=== PATIENT | male | born 1950 | race Caucasian/White ===

== ENCOUNTER → 2016-04-10 | Outpatient (CLI) | payer OTHER ==
[~2016-04-10] MED LIST: ACET-461 PO; ATEN25TA PO; ATOR40TA PO; ATOR40TA70 PO; ATOR80TA64 PO; ATOR80TA76 PO; Amlodipine Besylate PO; CARV3.122 PO; CHOL2000 PO; ENXP60I.6 SQ; FENO134C PO; FENO134C2 PO; FENO135C PO; FENO145T20 PO; RIFA300C3 PO; WARF-48 PO; WARF5TAB PO; WRF2.5T PO; WRF5T PO
[2016-04-10 18:08] LABS: BASOPHILS % (AUTO) 0 % (0-10); EOSINOPHILS # (AUTO) 0.2 10^3/uL (0.0-0.3); EOSINOPHILS % (AUTO) 2 % (0-10); LYMPHOCYTES # (AUTO) 2.8 X 10^3 (1.0-4.0); LYMPHOCYTES % (AUTO) 26 % (12-44); MEAN CORPUSCULAR HEMOGLOBIN 32 PG (25-34); MEAN CORPUSCULAR HGB CONC 33 G/DL (32-36); MEAN CORPUSCULAR VOLUME 97 FL (80-99); MEAN PLATELET VOLUME 12.2 FL (7.4-10.4); MONOCYTES % (AUTO) 9 % (0-12); NEUTROPHILS # (AUTO) 6.7 X 10^3 (1.8-7.8); NEUTROPHILS % (AUTO) 62 % (42-75); PLATELET COUNT 123 10^3/uL (130-400); RED BLOOD COUNT 3.11 10^6/uL (4.35-5.85); RED CELL DISTRIBUTION WIDTH 13.4 % (10.0-14.5); WHITE BLOOD COUNT 10.8 10^3/uL (4.3-11.0)
--- OUTSIDE RECORDS SUMMARY | 2016-04-10 18:08 | XMS REPORT | Continuity of Care Document ---
Author Author [facility] Organization [facility] Address Unknown Phone Unavailable Care Team Providers Care Manager Msw Name Role Phone PJ GALAN DO PCP Insurance Providers Payer Name Policy Number Subscriber Name Relationship [facility] [id number] Vasile Davies Self / Same As Patient Advance Directives Directive Response Recorded Date/Time Advance Directives Yes 10/06/14 9:05pm Health Care Power of Crop Insurance Claims Adjuster No 10/06/14 9:05pm Organ Donor Yes 10/06/14 9:05pm Resuscitation Status Full Code 10/06/14 9:05pm Chief Complaint and Reason for Visit Chief Complaint ABD PAIN Reason for Visit Splenic infarction Problems Medical Problems Problem Onset Date Status Splenic infarction Unknown Active Medications Medication Dose Route Sig Days/Qty Instructions Order Date Discontinued Date Status Warfarin Sodium 2.5 Mg PO WED 02/13/11 01/19/12 Discontinued Warfarin Sodium 5 Mg PO -SUN 02/13/11 01/19/12 Discontinued Fenofibrate 135 Mg PO BEDTIME 02/13/11 Active Cholecalciferol 3,000 Unit PO BEDTIME 02/13/11 10/07/14 Discontinued Enoxaparin Sodium 1 Each SQ GIVE EVERY 12 HRS ON SCHEDULE 02/15/11 01/19/12 Discontinued Warfarin Sodium 5 Mg PO [place],MO,WE,FR,SA 01/19/12 10/10/14 Discontinued Atorvastatin Calcium 40 Mg PO BEDTIME 01/19/12 Active Warfarin Sodium 7.5 Mg PO DAILY TAKES 1 & 1/2 (5MG) TABLETS 10/07/14 Active Acetaminophen 1,000 Mg PO EVERY 6 HOURS PRN PAIN 10/07/14 Active [Amlodipine Besylate] 10 Mg PO DAILY 30 Qty 10/10/14 Active Social History Social History Problem Response Recorded Date/Time Alcohol Use Denies Use 10/06/2014 9:05pm Recreational Drug Use No 10/06/2014 9:05pm Recent Foreign Travel No 10/06/2014 9:05pm Recent Infectious Disease Exposure No 10/06/2014 9:05pm Hospitalization with Isolation Denies 10/10/2014 6:05pm Smoking Status Never a Smoker 10/06/2014 9:05pm Query Response Start Date Stop Date Smoking Status Never a Smoker Hospital Discharge Instructions No hospital discharge instructions. Plan of Care Discharge Date 10/10/14 5:20pm Disposition 30 STILL A PATIENT Instructions/Education Provided Acute Abdominal Pain (DC) Forms Provided PDI Medical Prescriptions See Medications Section Referrals PJ GALAN DO (Unspecified) 10/12/14 Address: [address] [place] [id number] [phone] Reason(s) for Referral: CALL FOR APPOINTMENT PERRI ANDERSON MD FACP FACC CCDS (Unspecified) 1 Week Address: [address] [place] [address] [address] [place] [address] Reason(s) for Referral: CALL DR. LOBATO OFFICE TO SCHEDULE APPOINTMENT AT HIS OFFICE FOR NEXT WEEK. Functional Status Query Response Date Recorded Comprehension Ability Understands Concepts October 07, 2014 9:00pm Allergies, Adverse Reactions, Alerts Allergen Type Severity Reaction Status Last Updated Cephalexin Monohydrate Allergy Unknown RASH Active 10/06/14 Penicillins ([id number]) Allergy Unknown RASH Active 10/06/14 Sulfa (Sulfonamide Antibiotics) ([id number]) Allergy Unknown RASH Active 10/06/14 Immunizations No immunization records. Vital Signs Acute Vital Signs Vital Response Date/Time Temperature (Fahrenheit) 98.2 degrees F (97.6 - 99.5) Temperature (Calculated Celsius) 36.49873 degrees C (36.4 - 37.5) Temperature Source Temporal Pulse Rate (adult) 69 bpm (60 - 90) Respiratory Rate 18 bpm (12 - 24) O2 Sat by Pulse Oximetry 95 % (88 - 100) Blood Pressure 147/73 mm Hg Blood Pressure 147/ Pain Pain Intensity 0 Pain Pain Intensity 0 Height (Feet) 5 feet Height (Inches) 7.00 inches Height (Calculated Centimeters) 170.573169 cm Weight (Pounds) 183 pounds Weight (Ounces) 0.0 oz Weight (Calculated Grams) 54961.405 gm Weight (Calculated Kilograms) 83.109632 kilograms Calculated BMI 28.19 Results Laboratory Results Test Name Result Units Flags Reference Collection Date/Time Result Date/ Time Comments White Blood Count 11.5 10^3/uL H 4.3-11.0 10/10/2014 5:10/10/2014 5: 49am Red Blood Count 4.58 10^6/uL 4.35-5.85 10/10/2014 5:10/10/2014 5: 49am Hemoglobin 14.8 G/DL 13.3-17.7 10/10/2014 5:10/10/2014 5:49am Hematocrit 42 % 40-54 10/10/2014 5:10/10/2014 5:49am Mean Corpuscular Volume 92 FL 80-99 10/10/2014 5:10/10/2014 5: 49am Mean Corpuscular Hemoglobin 32 PG 25-34 10/10/2014 5:10/10/2014 5: 49am Mean Corpuscular Hemoglobin Concent 35 G/DL 32-36 10/10/2014 5:07/2014 5:49am Red Cell Distribution Width 13.0 % 10.0-14.5 10/10/2014 5:2014 5:49am Platelet Count 128 10^3/uL L 130-400 10/10/2014 5:10/10/2014 5:49am Mean Platelet Volume 10.9 FL H 7.4-10.4 10/10/2014 5:10/10/2014 5: 49am Neutrophils (%) (Auto) 64 % 42-75 10/10/2014 5:10/10/2014 5:49am Lymphocytes (%) (Auto) 24 % 12-44 10/10/2014 5:1510/10/2014 5:49am Monocytes (%) (Auto) 11 % 0-12 10/10/2014 5:10/10/2014 5:49am Eosinophils (%) (Auto) 1 % 0-10 10/10/2014 5:1510/10/2014 5:49am Basophils (%) (Auto) 0 % 0-10 10/10/2014 5:10/10/2014 5:49am Neutrophils # (Auto) 7.3 X 10^3 1.8-7.8 10/10/2014 5:10/10/2014 5: 49am Lymphocytes # (Auto) 2.7 X 10^3 1.0-4.0 10/10/2014 5:10/10/2014 5: 49am Monocytes # (Auto) 1.3 X 10^3 H 0.0-1.0 10/10/2014 5:10/10/2014 5: 49am Eosinophils # (Auto) 0.1 10^3/uL 0.0-0.3 10/10/2014 5:10/10/2014 5 :49am Basophils # (Auto) 0.0 10^3/uL 0.0-0.1 10/10/2014 5:10/10/2014 5: 49am Neutrophils % (Manual) 69 % 10/06/2014 5:34pm 10/06/2014 5:56pm Band Neutrophils 2 % 10/06/2014 5:34pm 10/06/2014 5:56pm Lymphocytes % (Manual) 22 % 10/06/2014 5:34pm 10/06/2014 5:56pm Monocytes % (Manual) 5 % 10/06/2014 5:34pm 10/06/2014 5:56pm Eosinophils % (Manual) 0 % 10/06/2014 5:34pm 10/06/2014 5:56pm Basophils % (Manual) 0 % 10/06/2014 5:34pm 10/06/2014 5:56pm Reactive Lymphocytes 2 % 10/06/2014 5:34pm 10/06/2014 5:56pm Blood Morphology Comment NORMAL 10/06/2014 5:34pm 10/06/2014 5: 56pm Prothrombin Time 25.2 SEC H 12.2-14.7 10/10/2014 5:15am 10/10/2014 5: 55am INR Comment 2.4 H 0.8-1.4 10/10/2014 5:15am 10/10/2014 5:55am INTERPRETIVE DATA SUGGESTED THERAPEUTIC RANGE FOR INR'S: VENOUS THROMBOSIS, PULMONARY EMBOLISM, OR PREVENTION OF SYSTEMIC EMBOLISM (EG. IN ATRIAL FIBRILLATION): 2.0 - 3.0 MECHANICAL PROSTHETIC HEART VALVES: 2.5 - 3.5* *NOTE: INR'S UP TO 4.5 MAY BE NECESSARY IN SELECTED GROUPS OF HIGH RISK PATIENTS. [employer] CONSENSUS CONFERENCE ON ANTITHROMBOTIC THERAPY (2000). Activated Partial Thromboplast Time 77 SEC H 24-35 10/10/2014 12:09pm 07/2014 12:27pm Fibrinogen 600 MG/DL H 221-496 10/09/2014 4:40am 10/09/2014 5:47am D-Dimer 1.68 UG/ML H 0.00-0.49 10/09/2014 4:40am 10/09/2014 5:47am Urine Color YELLOW 10/06/2014 6:46pm 10/06/2014 6:58pm Urine Clarity CLEAR 10/06/2014 6:46pm 10/06/2014 6:58pm Urine pH 6 5-9 10/06/2014 6:46pm 10/06/2014 6:58pm Urine Specific [place] 1.015 * 1.016-1.022 10/06/2014 6:46pm 2014 6:58pm Urine Protein 1+ * NEGATIVE 10/06/2014 6:46pm 10/06/2014 6:58pm Urine Glucose (UA) NEGATIVE NEGATIVE 10/06/2014 6:46pm 10/06/2014 6: 58pm Urine RBC (Auto) NEGATIVE NEGATIVE 10/06/2014 6:46pm 10/06/2014 6: 58pm Urine Ketones NEGATIVE NEGATIVE 10/06/2014 6:46pm 10/06/2014 6:58pm Urine Nitrite NEGATIVE NEGATIVE 10/06/2014 6:46pm 10/06/2014 6:58pm Urine Bilirubin NEGATIVE NEGATIVE 10/06/2014 6:46pm 10/06/2014 6: 58pm Urine Urobilinogen NORMAL MG/DL NORMAL 10/06/2014 6:46pm 10/06/2014 6: 58pm Urine Leukocyte Esterase NEGATIVE NEGATIVE 10/06/2014 6:46pm 2014 6:58pm Urine RBC NONE /HPF 10/06/2014 6:46pm 10/06/2014 6:58pm Urine WBC NONE /HPF 10/06/2014 6:46pm 10/06/2014 6:58pm Urine Bacteria NEGATIVE /HPF 10/06/2014 6:46pm 10/06/2014 6:58pm Urine Squamous Epithelial Cells RARE /HPF 10/06/2014 6:46pm 2014 6:58pm Urine Crystals NONE /LPF 10/06/2014 6:46pm 10/06/2014 6:58pm Urine Casts PRESENT /LPF 10/06/2014 6:46pm 10/06/2014 6:58pm Urine Hyaline Casts 5-10 /LPF * 10/06/2014 6:46pm 10/06/2014 6:58pm Urine Mucus SMALL /LPF * 10/06/2014 6:46pm 10/06/2014 6:58pm Urine Culture Indicated NO 10/06/2014 6:46pm 10/06/2014 6:58pm Sodium Level 138 MMOL/L 135-145 10/10/2014 5:15am 10/10/2014 5:59am Potassium Level 3.9 MMOL/L 3.6-5.0 10/10/2014 5:15am 10/10/2014 5:59am Chloride Level 108 MMOL/L H 98-107 10/10/2014 5:15am 10/10/2014 5:59am Carbon Dioxide Level 22 MMOL/L 21-32 10/10/2014 5:15am 10/10/2014 5: 59am Blood Urea Nitrogen 14 MG/DL 7-18 10/10/2014 5:15am 10/10/2014 5:59am Creatinine 0.91 MG/DL 0.60-1.30 10/10/2014 5:15am 10/10/2014 5:59am BUN/Creatinine Ratio 10/10/2014 5:15am 10/10/2014 5:59am Estimat Glomerular Filtration Rate > 60 10/10/2014 5:15am 2014 5:59am GFR INTERPRETIVE DATA UNITS FOR ESTIMATED GFR (eGFR): mL/min/1.73 M2 REFERENCE RANGE FOR ESTIMATED GFR (eGFR) eGFR NORMAL eGFR >60 MODERATELY DECREASED eGFR 30-59 SEVERLY DECREASED eGFR 15-29 KIDNEY FAILURE <15 (OR DIALYSIS) Glucose Level 106 MG/DL H 70-105 10/10/2014 5:15am 10/10/2014 5:59am Calcium Level 9.0 MG/DL 8.5-10.1 10/10/2014 5:15am 10/10/2014 5:59am Magnesium Level 2.1 MG/DL 1.8-2.4 10/08/2014 5:40am 10/08/2014 6:48am Total Bilirubin 0.8 MG/DL 0.1-1.0 10/09/2014 4:40am 10/09/2014 6:17am Alkaline Phosphatase 42 U/L 40-136 10/09/2014 4:40am 10/09/2014 6:17am Aspartate Amino Transf (AST/SGOT) 19 U/L 5-34 10/09/2014 4:40am 2014 6:17am Alanine Aminotransferase (ALT/SGPT) 16 U/L 0-55 10/09/2014 4:40am 10/09 6:17am Lactate Dehydrogenase 300 U/L H 125-220 10/09/2014 4:40am 10/09/2014 6: 17am Total Protein 5.8 G/DL L 6.4-8.2 10/09/2014 4:40am 10/09/2014 6:17am Albumin 3.3 G/DL 3.2-4.5 10/09/2014 4:40am 10/09/2014 6:17am Triglycerides Level 138 MG/DL <150 10/08/2014 5:40am 10/08/2014 6:48am Cholesterol Level 132 MG/DL < 200 10/08/2014 5:40am 10/08/2014 6:48am HDL Cholesterol 27 MG/DL L 40-60 10/08/2014 5:40am 10/08/2014 6:48am LDL Cholesterol Direct 79 MG/DL 1-129 10/08/2014 5:40am 10/08/2014 6: 48am VLDL Cholesterol 28 MG/DL 5-40 10/08/2014 5:40am 10/08/2014 6:48am Amylase Level 41 U/L 25-125 10/06/2014 5:34pm 10/06/2014 6:12pm Lipase 27 U/L 8-78 10/06/2014 5:34pm 10/06/2014 6:12pm Total Protein (PEP) 5.7 L GM/DL 6.5-8.2 10/08/2014 5:40am 10/09/2014 10:17am Protein Electrophoresis Pathologist SEE PATH REPORT 10/08/2014 5: 40am 10/09/2014 10:17am Urine Eosinophils NONE NONE 10/08/2014 6:25am 10/09/2014 10:13am Procedures Procedure Status Date Provider(s) Tracing only of electrocardiogram completed 10/06/14 ELIS MAHAJAN DO Color Doppler echocardiography completed 10/06/14 PJ GALAN DO Tracing only of electrocardiogram completed 10/07/14 PERRI ANDERSON MD FACP FAC CCDS Encounters Encounter Location Date/Time Discharged Inpatient Via [facility] 10/06/14 7:58pm Recent Diagnosis Splenic infarction
[2016-04-10 18:20] LABS: PROTHROMBIN TIME PATIENT 31.1 SEC (12.2-14.7)
[2016-04-10 18:28] LABS: CALCIUM 8.7 MG/DL (8.5-10.1); CREATININE SERUM 2.44 MG/DL (0.60-1.30); POTASSIUM 4.4 MMOL/L (3.6-5.0); hs C REACTIVE PROTEIN 0.34 MG/DL (0.00-0.50)
[2016-04-10 18:37] LABS: ERYTHROCYTE SEDIMENTATION RATE 35 MM/HR (0-30)
== END ==
LOC: HH 18:04
PROVIDERS: ATTEND Internal Medicine Cardiovascular Disease
DX: I38 Endocarditis, valve unspecified (principal)
CPT/HCPCS: 80048; 82550; 85025; 85610; 85652; 86141

== ENCOUNTER 2016-05-02 10:08 | Day surgery (SDC) | payer MEDICARE, OTHER ==
[2016-05-02] VITALS (8 sets, daily range): BP systolic 121–167; BP diastolic 53–78
[~2016-05-02] VITALS: Ht 170.2 cm; Wt 81.6 kg
[~2016-05-02 10:08] MED LIST changes: -CARV3.122 PO; -RIFA300C3 PO
--- OUTSIDE RECORDS SUMMARY | 2016-05-02 10:11 | XMS REPORT | Continuity of Care Document ---
Author Author [facility] Organization [facility] Address Unknown Phone Unavailable Care Team Providers Care Golf Teacher Name Role Phone PJ GALAN DO PCP Insurance Providers Payer Name Policy Number Subscriber Name Relationship [facility] [id number] Vasile Davies Self / Same As Patient Advance Directives Directive Response Recorded Date/Time Advance Directives Yes 10/06/14 9:05pm Health Care Power of Business Executive No 10/06/14 9:05pm Organ Donor Yes 10/06/14 [...] Referrals PJ GALAN DO (Unspecified) 10/12/14 Address: [address] [place] [phone] Reason(s) for Referral: CALL FOR APPOINTMENT PERRI ANDERSON MD FACP FACC CCDS (Unspecified) 1 Week Address: [address] [place] [address] [address] [place] [address] Reason(s) for Referral: CALL DR. LOBATO OFFICE TO SCHEDULE APPOINTMENT AT HIS OFFICE FOR NEXT WEEK. Functional Status Query Response Date Recorded Comprehension Ability Understands Concepts October 07, 2014 9:00pm Allergies, Adverse Reactions, Alerts Allergen Type Severity Reaction Status Last Updated Cephalexin Monohydrate Allergy Unknown RASH Active 10/06/14 Penicillins ([id number]) Allergy Unknown RASH Active 10/06/14 Sulfa (Sulfonamide Antibiotics) ([id number]) Allergy Unknown RASH Active 10/06/14 Immunizations No immunization records. Vital Signs Acute Vital Signs Vital Response Date/Time Temperature (Fahrenheit) 98.2 degrees F (97.6 - 99.5) Temperature (Calculated Celsius) 36.02699 degrees C (36.4 - 37.5) Temperature Source Temporal Pulse Rate (adult) 69 bpm (60 - 90) Respiratory Rate 18 bpm (12 - 24) O2 Sat by Pulse Oximetry 95 % (88 - 100) Blood Pressure 147/73 mm Hg Blood Pressure 147/ Pain Pain Intensity 0 Pain Pain Intensity 0 Height (Feet) 5 feet Height (Inches) 7.00 inches Height (Calculated Centimeters) 170.363716 cm Weight (Pounds) 183 pounds Weight (Ounces) 0.0 oz Weight (Calculated Grams) 35489.405 gm Weight (Calculated Kilograms) 83.318422 kilograms Calculated BMI 28.19 Results Laboratory Results [...] SELECTED GROUPS OF HIGH RISK PATIENTS. [employer] CONSENSUS CONFERENCE ON [...] 5-9 10/06/2014 6:46pm 10/06/2014 6:58pm Urine Specific [place] 1.015 * 1.016-1.022 10/06/2014 6:46pm 2014 6:58pm [...] Encounters Encounter Location Date/Time Discharged Inpatient Via [facility] 10/06/14 7:58pm Recent Diagnosis Splenic infarction
--- OUTSIDE RECORDS SUMMARY | 2016-05-02 10:12 | XMS REPORT | Continuity of Care Document ---
Author Author [facility] Organization [facility] Address Unknown Phone Unavailable Care Team Providers Care Machinist Tool [employer] Name Role Phone PJ GALAN DO PCP Insurance Providers Payer Name Policy Number Subscriber Name Relationship [facility] [id number] Vasile Davies Self / Same As Patient Advance Directives Directive Response Recorded Date/Time Advance Directives Yes 10/06/14 9:05pm Health Care Power of Clinical Office Technician No 10/06/14 9:05pm Organ Donor Yes 10/06/14 [...] Referrals PJ GALAN DO (Unspecified) 10/12/14 Address: [address] [place] [phone] Reason(s) for Referral: CALL FOR APPOINTMENT PERRI ANDERSON MD FACP FACC CCDS (Unspecified) 1 Week Address: [address] [place] [address] [address] [place] [address] Reason(s) for Referral: CALL DR. LOBATO OFFICE TO SCHEDULE APPOINTMENT AT HIS OFFICE FOR NEXT WEEK. Functional Status Query Response Date Recorded Comprehension Ability Understands Concepts October 07, 2014 9:00pm Allergies, Adverse Reactions, Alerts Allergen Type Severity Reaction Status Last Updated Cephalexin Monohydrate Allergy Unknown RASH Active 10/06/14 Penicillins ([id number]) Allergy Unknown RASH Active 10/06/14 Sulfa (Sulfonamide Antibiotics) ([id number]) Allergy Unknown RASH Active 10/06/14 Immunizations No immunization records. Vital Signs Acute Vital Signs Vital Response Date/Time Temperature (Fahrenheit) 98.2 degrees F (97.6 - 99.5) Temperature (Calculated Celsius) 36.79313 degrees C (36.4 - 37.5) Temperature Source Temporal Pulse Rate (adult) 69 bpm (60 - 90) Respiratory Rate 18 bpm (12 - 24) O2 Sat by Pulse Oximetry 95 % (88 - 100) Blood Pressure 147/73 mm Hg Blood Pressure 147/ Pain Pain Intensity 0 Pain Pain Intensity 0 Height (Feet) 5 feet Height (Inches) 7.00 inches Height (Calculated Centimeters) 170.022583 cm Weight (Pounds) 183 pounds Weight (Ounces) 0.0 oz Weight (Calculated Grams) 24269.405 gm Weight (Calculated Kilograms) 83.445413 kilograms Calculated BMI 28.19 Results Laboratory Results [...] 5-9 10/06/2014 6:46pm 10/06/2014 6:58pm Urine Specific [place] 1.015 * 1.016-1.022 10/06/2014 6:46pm 2014 6:58pm [...] Encounters Encounter Location Date/Time Discharged Inpatient Via [facility] 10/06/14 7:58pm Recent Diagnosis Splenic infarction
[2016-05-02] MEDS ORDERED: NS IV 1000 ML 1,000 ML ONE ×2 (10:23→12:49)
[2016-05-02] MEDS ORDERED: LIDOCAINE 1% INJ 20 ML (XYLOCAINE) VIAL ONE (10:23)
[2016-05-02] MEDS ORDERED: HEParin (CATH LAB) 2,000 ML IV ONE (10:23)
[2016-05-02] MEDS ORDERED: NS IV 1000 ML 1,000 ML IV SCH ×2 (11:00→14:00)
[2016-05-02 11:05] LABS: MEAN PLATELET VOLUME 11.5 FL (7.4-10.4); RED BLOOD COUNT 3.44 10^6/uL (4.35-5.85); RED CELL DISTRIBUTION WIDTH 14.2 % (10.0-14.5); WHITE BLOOD COUNT 10.4 10^3/uL (4.3-11.0)
[2016-05-02 11:16] LABS: INR 1.5 (0.8-1.4); PROTHROMBIN TIME PATIENT 18.1 SEC (12.2-14.7)
[2016-05-02 11:24] LABS: ALBUMIN 4.3 G/DL (3.2-4.5); CALCIUM 8.9 MG/DL (8.5-10.1); CREATININE SERUM 1.82 MG/DL (0.60-1.30); TOTAL PROTEIN 7.2 G/DL (6.4-8.2)
[2016-05-02] MEDS ORDERED: CARV3.122 PO (11:49)
[2016-05-02] MEDS ORDERED: RIFA300C3 PO (11:49)
[2016-05-02] MEDS ORDERED: MIDAZOLAM 5 MG/5 ML (VERSED) VIAL ONE (13:10)
[2016-05-02] MEDS ORDERED: diphenhydrAMINE 50 MG/ML INJ (BENADRYL) ONE (13:10)
[2016-05-02] MEDS ORDERED: fentaNYL INJECTION 100 MCG/2 ML AMP ONE (13:10)
--- NOTE | 2016-05-02 13:28 | Cardiac Procedure Note-CS/ASA ---
Pre-Procedure Note Pre-Op Procedure Note H&P Reviewed The H&P was reviewed, patient examined and no changes noted. Date H&P Reviewed: May 02, 2016 Time H&P Reviewed: :28 Conscious Sedation Pre-Proced Time Reviewed: : ASA Class: 3 Airway Mallampati Classification: ([place] appropriate class) I. II. III, IV Lungs Heart ASA score ASA 1: a normal healthy patient ASA 2: a patient with a mild systemic disease (mid diabetes, controlled hypertension, obesity ASA 3: a patient with a severe systemic disease that limits activity (angina , COPD, prior Myocardial infarction) ASA 4: a patient with an incapacitating disease that is a constant threat to life (CHF, renal failure) ASA 5: a moribund patient not expected to survive 24 hrs. (ruptured aneurysm) ASA 6: a declared brain patient whose organs are being harvested. For emergent operations, add the letter E after the classification Grade 2 Sedation Plan: Analgesia, Amnesia, Plan communicated to team members, Discussed options with patient/fam, Discussed risks with patient/fam Note The patient is an appropriate candidate to undergo the planned procedure, sedation, and anesthesia. The patient immediately re-assessed prior to indication. PERRI ANDERSON MD FACP FAC CCDS May 02, 2016 13:28
[2016-05-02] MEDS ORDERED: PATIENT MAY USE OWN MEDS, ALL PO SCH (14:00)
--- NOTE | 2016-05-02 14:05 | Discharge Inst-Post CATH ---
Discharge Inst-CATH Post Cardiac Cath D/C Inst Follow Up/Plan Call Dr Brunner's office for surgery date STAR. Dr Aranda has already spoken with Dr Brunner regarding cath results F/u with Dr Aranda in one to two weeks CARDIAC CATH DISCHARGE INSTRUCTIONS *Hold Metformin for 48 hours post heart cath. ACTIVITY * Go Home directly and rest. * Limit activity of the leg (or wrist if it was used) for 7 days including aerobics, swimming, jogging, bicycling, etc. * Restrict stair-climbing for 7 days if possible, if not, climb up with your non -cath leg, then bring together on the same step. * Avoid lifting, pushing, pulling or excessive movement of the affected extremity for 7 days. * Customary sexual activity may be resumed after 2 days-use caution not to use a position that strains or causes pain to the affected extremity. * No driving for 24 hours. * NO SMOKING. * Avoid straining for bowel movements for 7 days. * Gentle walking on level ground is allowed. * Returning to work will depend on the type of procedure and the results. Your doctor will discuss this with you. CALL YOUR DOCTOR FOR ANY OF THE FOLLOWING: *If bleeding from the puncture site occurs- Apply gentle pressure to site with clean cloth and call your doctor or EMS. * If a knot or lump forms under the skin, increases in size, or causes pain. * If bruising appears to be worsening or moving further down your leg instead of disappearing. * Temperature above 101 F. CARE OF YOUR GROIN INCISION; * Bruising or purple discoloration of the skin near the puncture site is common. * You may shower only, no bathtub bathing for 5 days. Be careful to avoid slipping as your leg may feel stiff. * If a closure device was used on your femoral artery, please see the attached guide regarding care of the device and your leg. * REMOVE the dressing from your groin the next day after your procedure in the shower. CARE OF YOUR WRIST INCISION; * Bruising or purple discoloration of the skin near the puncture site is common. * You may shower. * DO NOT submerge wrist. * Remove dressing in 24 hours. PERRI ARANDA MD [facility] CCDS May 02, 2016 14:05
--- NOTE | 2016-05-03 11:29 | CARDIAC CATHETERIZATION ---
PROCEDURE PHYSICIAN: PERRI ANDERSON DATE OF PROCEDURE: 05/02/2016 Yunior Hamilton is a 66-year-old man who is due to undergo aortic valve replacement for endocarditis with Dr. Brunner and Dr. Brunner had recommended angiography prior to valve surgery. An informed consent was obtained. PROCEDURE: He was brought to the cardiac catheterization laboratory. The right groin was prepared and draped usual sterile fashion. 1% Lidocaine was used for local anesthesia. Modified Seldinger technique was used to advance a 5-[place] Island[place] sheath in the right femoral artery. 5-[place] JL4 catheter was used 5-[place], JR4 catheter was used for the right coronary angiography. The diagnostic catheters were removed. Angiography of the right femoral artery was carried out through the sheath. Mynx was used to achieve hemostasis. He received 1200 mL of normal saline prior to the procedure because of renal insufficiency. Vigorous perioperative hydration was continued during the procedure. CORONARY ANGIOGRAPHY: Left main coronary artery is free of significant disease. Left anterior descending and left circumflex arteries are free of significant disease. Right coronary artery is dominant. There is no angiographically significant coronary artery disease. Only mild coronary plaques are seen. CONCLUSION: No angiographically significant coronary artery disease. DISCUSSION AND RECOMMENDATIONS: These results and films are being forwarded to Dr. Brunner and the patient is due to undergo valve replacement surgery in the near future. Job ID: [id number] Dictated Date: 05/02/2016 13:52:45 Training Program Manager Date: 05/03/2016 11:18:31 / praveena
== END 2016-05-02 17:00 | disposition home or self-care (01) ==
LOC: CATH 10:08
PROVIDERS: ATTEND Internal Medicine Cardiovascular Disease
DX: I35.8 Other nonrheumatic aortic valve disorders (principal); Z95.2 Presence of prosthetic heart valve; Z79.01 Long term (current) use of anticoagulants; I10 Essential (primary) hypertension; D69.6 Thrombocytopenia, unspecified; Z79.899 Other long term (current) drug therapy; Z95.0 Presence of cardiac pacemaker
CPT/HCPCS: 36415; 80053; 80061; 85027; 85610; 85730; 87081; 93454

== ENCOUNTER → 2016-09-12 | Outpatient (CLI) | payer MEDICARE, OTHER ==
[~2016-09-12] MED LIST changes: +CARV3.122 PO; +RIFA300C3 PO
--- NOTE | 2016-09-14 06:32 | ECHOCARDIOGRAPHY REPORT ---
DATE OF SERVICE: 09/12/2016 ECHOCARDIOGRAPHY REPORT ORDERING PHYSICIAN: Dr. Aranda. PRIMARY CARE PHYSICIAN: Dr. Benitez. CLINICAL DIAGNOSES: Status post aortic valve replacement, coronary artery disease. MEASUREMENTS: Left ventricular diameter diastolic 5.2. AVF thickness, diastolic 1.3. LVPW thickness, diastolic 1.1. Left atrium 3.5. DESCRIPTION: Two-dimensional echocardiography shows normal global left systolic function and normal regional wall motion. Mitral and tricuspid valve leaflets show good leaflet excursion. In the right heart, echo dense structures are consistent with pacemaker lead/leads. Aortic valve leaflet structure is not very well-visualized. Doppler imaging shows trivial to mild mitral and tricuspid regurgitation. Pulmonary artery systolic pressure is estimated to be approximately 25 to 30 mmHg. Peak pressure gradient across the aortic valve is approximately 14 mmHg with a mean gradient of approximately 8 mmHg and the aortic valve area is calculated to be approximately 2.8 cm2. There is no evidence of significant intracardiac shunt on this transthoracic echocardiographic study. Inferior vena cava appears mostly collapsed on this study. CONCLUSIONS: 1. Normal global left ventricular systolic function with ejection fraction of approximately 60%. 2. Mild concentric left ventricular hypertrophy. 3. Adequately functioning bioprosthetic aortic valve. 4. Trivial to mild mitral and tricuspid regurgitation. 5. Pulmonary artery systolic pressure is estimated to be 25 to 30 mmHg. Job ID: [id number] DocumentID: [id number] Dictated Date: 09/13/2016 14:20:20 Break Out Worker Date: 09/13/2016 16:47:15 Dictated By: PERRI ARANDA MD, MA, FACP, FACC,
== END ==
LOC: CARD 11:42
PROVIDERS: ATTEND Internal Medicine Cardiovascular Disease
DX: I33.0 Acute and subacute infective endocarditis (principal); I44.2 Atrioventricular block, complete; Z95.4 Presence of other heart-valve replacement; Z95.0 Presence of cardiac pacemaker; I25.10 Atherosclerotic heart disease of native coronary artery without angina pectoris
CPT/HCPCS: 93306

== ENCOUNTER → 2021-03-16 | Outpatient (CLI) | payer MEDICARE, OTHER ==
[~2021-03-16] MED LIST changes: -FENO145T20 PO; +FENO145T26 PO
== END ==
LOC: CARD 11:00
PROVIDERS: ATTEND Nurse Practitioner Family
DX: I51.7 Cardiomegaly (principal); Z95.4 Presence of other heart-valve replacement
CPT/HCPCS: 93306